=== PATIENT | female | born 1955 | race Caucasian/White ===

== ENCOUNTER → 2016-07-20 | Outpatient (CLI) | payer BC ==
--- NOTE | 2016-07-20 21:53 | PN ---
Patient is coming in for a compliancy check. She was diagnosed having symptomatic obstructive sleep apnea with an AHI of 27, worse in a supine body position. Currently she is on auto CPAP unit with a pressure minimum of 5 and pressure maximum of 20. Much improved. Much more alert and awake during the day. Much better stamina. No major hypersomnia or sleepiness. Compliance data was checked and over the past 30 days, the patient's average CPAP use is 5.7 hours per night. The P90 pressure is 11.6 and leak factor is only 5 L per minute and the patient's AHI while on treatment is down to 1.6. As such, this is a successful CPAP treatment and the patient's Rhame score is down to 4. BP is 153/100, pulse 94, respirations 16, weight is 281. GENERAL APPEARANCE: Calm, comfortable. HEENT: Short neck, crowding of posterior pharynx. LUNGS: Diminished; otherwise clear. Heart sounds are regular rate and rhythm. Normal S1 and S2. No S3. No S4. No murmurs. ABDOMEN: Soft, nontender. No organomegaly. EXTREMITIES: No edema. No cyanosis or clubbing. IMPRESSION: 1. Symptomatic obstructive sleep apnea, moderate in severity, worsened in a supine body position. apnea-hypopnea index is 27.5. The patient is undergoing successful continuous positive airway pressure therapy. 2. Obesity with interval weight gain. Body mass index is above 51. 3. Hypersomnia. Improved Rhame score is down to 4. PLAN: 1. Weight loss. 2. Sleep in a sidewise body position. 3. Continue auto CPAP therapy and if treatment is successful, next see me back in a year's time in followup; earlier if needed.
== END | disposition home or self-care (01) ==
LOC: SLEEP 13:03
PROVIDERS: ATTEND Internal Medicine Critical Care Medicine
DX: G47.33 Obstructive sleep apnea (adult) (pediatric) (principal); E66.9 Obesity, unspecified; Z68.43 Body mass index [BMI] 50.0-59.9, adult

== ENCOUNTER → 2017-11-29 | Outpatient (CLI) | payer BC ==
--- NOTE | 2017-11-29 13:43 | PN ---
PROGRESS NOTE Karen is a pleasant 62-year-old female patient coming in for a compliancy check. On today's evaluation, the patient is having some increased cough and congestion and change in her voice, quality and hoarseness. She also has developed some exertional dyspnea and wheeze. No history of any bronchial asthma. No history of COPD. She is an ex-smoker. She is afebrile. No pleurisy. No hemoptysis at this point. In terms of her sleep apnea, the patient is very compliant with CPAP machine. She continues to use her CPAP machine an average of 5.1 hour per night. She has an APAP with a minimum pressure of 5 and maximum pressure of 20 and her average pressure has been 8.7, which is lower compared to last year. This improvement in the average pressure is probably related to weight loss as the patient used to weight 281 pounds and currently she is down to 257. She is very compliant with CPAP machine. She has no other significant complaints. She wants her CPAP supplies to be renewed. Her current Rye Score is at 6. REVIEW OF SYSTEMS: 12-point review of system was done. Positive for weight loss. In addition to some increased cough, chest tightness and wheezing and change in voice quality probably related to underlying laryngitis. No chest pain. No pleurisy. No hemoptysis. No altered mentation. No episodes of falling asleep during day-to-day activities and she seems to be doing well at this point in time. No falls. No anxiety. No depression. No other complaints. PHYSICAL EXAMINATION: VITALS: Her current blood pressure 92/67, pulse is 99, respiration 16, temperature 97.7, saturation 95% on room air. Weight is 257. Height is 5 feet 1, BMI 48.5. GENERAL APPEARANCE: She is calm, comfortable, no acute distress. Head is atraumatic, normocephalic. Neck is supple, short. There is significant crowding of the posterior pharynx. There is no goiter or neck masses at this point. Heart is regular rate and rhythm. Normal S1, S2. No S3, S4. No murmurs. ABDOMEN: Soft, nontender. No organomegaly. EXTREMITIES: No edema. No cyanosis or clubbing. Neurologically: The patient is AO x3. There is no focal neurological deficits. PSYCHIATRIC: No anxiety or depression at this point. IMPRESSION: 1. Obstructive sleep apnea with an AHI of 27. The patient continues to be successfully treated with APAP, minimum pressure of 5, maximum pressure of 20 and there has been significant improvement in the average pressure over the past 1 year attributed to her weight loss. 2. Morbid obesity. Current BMI is 48.5, and the patient's weight is down to 257. 3. Acute laryngitis/bronchitis with secondary shortness of breath and loss in the voice and change in voice quality. 4. Hypersomnia recovered. PLAN: 1. Will give the patient a course of Z-Denis and Medrol Dosepak regarding her laryngitis/bronchitis. 2. Will continue CPAP therapy at same level of pressure with minimum pressure of 5, maximum pressure of 20 and the patient is on APAP treatment and her treatment is successful at this point. 3. Encourage further weight loss. 4. Renew her CPAP supplies and see me back in a year's time and follow up earlier if needed. MMEDELMIRA / JESUSN: [id number] /
== END | disposition home or self-care (01) ==
LOC: SLEEP 11:00
PROVIDERS: ATTEND Internal Medicine Critical Care Medicine
DX: G47.33 Obstructive sleep apnea (adult) (pediatric) (principal); E66.01 Morbid (severe) obesity due to excess calories; Z68.42 Body mass index [BMI] 45.0-49.9, adult; Z99.89 Dependence on other enabling machines and devices

== ENCOUNTER → 2018-07-11 | Outpatient (CLI) | payer MEDICARE, BC ==
--- NOTE | 2018-07-11 16:52 | PN ---
PROGRESS NOTE Karen is 63 with a known history of obstructive sleep apnea coming in for a followup. The patient was recently seen in the office approximately 8 months ago and she was doing extremely well. She obtained her Medicare and she was asked to come in for reevaluation. She is currently using a APAP machine. Minimum pressure of 5, maximum pressure of 20 and she continues to benefit from the machine. The patient was losing weight and she was down to 257 pounds and she has maintained her weight since last evaluation. Currently she is at 259 with a body mass index of 49.7. She remains extremely compliant and she is averaging around 5.9 hours of CPAP use per night with 4 L/minute leak factor and an AHI of 0.7 while on treatment. Her CPAP use for more than 4 hours is more than 70%. She wants all of the supplies to be renewed as the patient is using AirFit P10 nose pillow and she wants a heated tubing. She continues to benefit from treatment. Her Damon score is down to 6. BP 148/98, pulse 86, respirations 16, temperature 97.8. Saturation 99% on room air. Weight is 259. Height is 5 feet 0 inches, BMI 49.7, general appearance is calm and comfortable. Head is atraumatic, normocephalic. Neck is supple. There is no JVD. No goiter or neck masses. LUNGS: Clear to auscultation. Heart sounds are regular rate and rhythm. Normal S1, S2. No S3. No murmurs. Abdomen is soft, nontender. No organomegaly. EXTREMITIES: No edema. No cyanosis or clubbing. NEUROLOGIC: Alert and oriented x3. No focal neurological deficits. Psychiatric: Negative for anxiety or depression. IMPRESSION: 1. Severe symptomatic obstructive sleep apnea. The patient had an AHI of 27, currently on APAP and continues to be successfully treated. 2. Hypersomnia, recovered. 3. Morbid obesity. Weight is stable at 259 pounds. 4. Hypersomnia, recovered. PLAN: Renew the patient CPAP supplies including the mask, filters and tubing. The patient will be given AirFit P10 Medium-size nose pillows. The patient will be given the appropriate heated tubing. The patient will see me back in a couple of years in follow up, earlier if needed. MMODL / IJN: [id number] /
== END ==
LOC: SLEEP 15:02
PROVIDERS: ATTEND Internal Medicine Critical Care Medicine
DX: G47.33 Obstructive sleep apnea (adult) (pediatric) (principal); E66.01 Morbid (severe) obesity due to excess calories; Z99.89 Dependence on other enabling machines and devices; Z68.42 Body mass index [BMI] 45.0-49.9, adult

== ENCOUNTER 2020-04-19 09:19 | Inpatient (IN) | payer MEDICARE, BC ==
[2020-04-19] MEDS ORDERED: ACETAMINOPHEN TAB 500 MG TAB PO STA ×2 (10:06→13:15)
[2020-04-19] MEDS ORDERED: SODIUM CHLORIDE 0.9% 1,000 ML IV ONE (10:07)
--- NOTE | 2020-04-19 10:29 | ED ---
General Adult HPI - General Chief complaint: Upper Respiratory Infection Stated complaint: Weak Time Seen by Provider: 04/19/20 09:46 Source: patient, RN notes reviewed, old records reviewed Mode of arrival: ambulatory Limitations: no limitations - History of Present Illness Initial comments: 65-year-old female presents emergency department today for evaluation with complaints of fever and general body aches and fatigue. Patient reportedly started to have symptoms of fatigue headache and bodyaches starting on Tuesday. She reports that she has been in bed sleeping most of the time. Patient reports that she's had no known history of sick contacts, family works in healthcare. She is retired. Patient reports that she has been somewhat winded more short of breath. - Related Data Home Medications Medication Instructions Recorded Confirmed Aspirin 81 mg PO DAILY 08/28/14 04/19/20 Levothyroxine Sodium [Synthroid] 112 mcg PO DAILY 08/28/14 04/19/20 Metoprolol Tartrate 50 mg PO QAM 08/28/14 04/19/20 Moexipril HCl 7.5 mg PO QAM 08/28/14 04/19/20 Simvastatin 20 mg PO HS 08/28/14 04/19/20 Allergies Allergy/AdvReac Type Severity Reaction Status Date / Time Penicillins Allergy Rash/Hives Verified 04/19/20 12:39 Review of Systems ROS Statement: Those systems with pertinent positive or pertinent negative responses have been documented in the HPI. ROS Other: All systems not noted in ROS Statement are negative. Past Medical History Past Medical History: Hypertension History of Any Multi-Drug Resistant Organisms: None Reported Past Surgical History: No Surgical Hx Reported Past Psychological History: No Psychological Hx Reported Smoking Status: Never smoker Past Alcohol Use History: None Reported Past Drug Use History: None Reported General Exam - General Exam Comments Initial Comments: 65-year-old female. Alert and oriented 3. Limitations: no limitations General appearance: alert, in no apparent distress Head exam: Present: atraumatic, normocephalic, normal inspection Eye exam: Present: normal appearance, PERRL, EOMI. Absent: scleral icterus, conjunctival injection, periorbital swelling ENT exam: Present: normal exam, mucous membranes moist Neck exam: Present: normal inspection. Absent: tenderness, meningismus, lymphadenopathy Respiratory exam: Present: wheezes. Absent: normal lung sounds bilaterally, respiratory distress, rales, rhonchi, stridor Cardiovascular Exam: Present: regular rate, normal rhythm, normal heart sounds. Absent: systolic murmur, diastolic murmur, rubs, gallop, clicks GI/Abdominal exam: Present: soft Extremities exam: Present: normal inspection, full ROM, normal capillary refill. Absent: tenderness, pedal edema, joint swelling, calf tenderness Back exam: Present: normal inspection Neurological exam: Present: alert, oriented X3, CN II-XII intact Psychiatric exam: Present: normal affect, normal mood Skin exam: Present: warm, dry, intact, normal color. Absent: rash Course Vital Signs 04/19/20 04/19/20 09:34 12:14 Temperature 101.4 F H Pulse Rate 77 77 Respiratory 18 18 Rate Blood Pressure 110/71 98/51 O2 Sat by Pulse 96 96 Oximetry Medical Decision Making - Medical Decision Making 65-year-old female presents emergency department today for concerns for weakness cough and respiratory congestion. Symptoms are the past 4 days. She rates a fever of 101. Patient symptoms seem likely to be coping 19 infection. Patient had laboratory obtained showing elevated CRP and let LDH. Patient's chest x-ray shows evidence of pneumonia. Patient's oxygen was 92% on room air with ambulation. Patient case discussed with at this time. Dr. Aguirre discussed with . also he agrees for admission. - Lab Data Result diagrams: 04/19/20 10:50 04/19/20 10:50 Lab Results 04/19/20 04/19/20 04/19/20 Range/Units 10:50 10:50 10:50 WBC 6.2 (3.8-10.6) k/uL RBC 4.98 (3.80-5.40) m/uL Hgb 14.3 (11.4-16.0) gm/dL Hct 42.9 (34.0-46.0) % MCV 86.2 (80.0-100.0) fL MCH 28.7 (25.0-35.0) pg MCHC 33.3 (31.0-37.0) g/dL RDW 13.6 (11.5-15.5) % Plt Count 143 L (150-450) k/uL MPV 9.3 Neutrophils % 78 % Lymphocytes % 17 % Monocytes % 4 % Eosinophils % 0 % Basophils % 0 % Neutrophils # 4.8 (1.3-7.7) k/uL Lymphocytes # 1.1 (1.0-4.8) k/uL Monocytes # 0.2 (0-1.0) k/uL Eosinophils # 0.0 (0-0.7) k/uL Basophils # 0.0 (0-0.2) k/uL PT 9.9 (9.0-12.0) sec INR 0.9 (<1.2) APTT 25.1 (22.0-30.0) sec D-Dimer 0.71 H (<0.60) mg/L FEU Sodium 134 L (137-145) mmol/L Potassium 4.1 (3.5-5.1) mmol/L Chloride 99 (98-107) mmol/L Carbon Dioxide 27 (22-30) mmol/L Anion Gap 8 mmol/L BUN 16 (7-17) mg/dL Creatinine 0.86 (0.52-1.04) mg/dL Est GFR (CKD-EPI)AfAm 82 (>60 ml/min/1.73 sqM) Est GFR (CKD-EPI)NonAf 71 (>60 ml/min/1.73 sqM) Glucose 103 H (74-99) mg/dL Plasma Lactic Acid Owen (0.7-2.0) mmol/L Calcium 8.5 (8.4-10.2) mg/dL Magnesium 2.2 (1.6-2.3) mg/dL Total Bilirubin 1.1 (0.2-1.3) mg/dL AST 39 H (14-36) U/L ALT 20 (4-34) U/L Alkaline Phosphatase 75 (38-126) U/L Lactate Dehydrogenase 924 H (313-618) U/L C-Reactive Protein 140.4 H (<10.0) mg/L Total Protein 6.8 (6.3-8.2) g/dL Albumin 3.7 (3.5-5.0) g/dL Urine Color Urine Appearance (Clear) Urine pH (5.0-8.0) Ur Specific [place] (1.001-1.035) Urine Protein (Negative) Urine Glucose (UA) (Negative) Urine Ketones (Negative) Urine Blood (Negative) Urine Nitrite (Negative) Urine Bilirubin (Negative) Urine Urobilinogen (<2.0) mg/dL Ur Leukocyte Esterase (Negative) Urine RBC (0-5) /hpf Urine WBC (0-5) /hpf Ur Squamous Epith Cells (0-4) /hpf Urine Bacteria (None) /hpf Hyaline Casts (0-2) /lpf Urine Mucus (None) /hpf 04/19/20 04/19/20 Range/Units 10:50 12:15 WBC (3.8-10.6) k/uL RBC (3.80-5.40) m/uL Hgb (11.4-16.0) gm/dL Hct (34.0-46.0) % MCV (80.0-100.0) fL MCH (25.0-35.0) pg MCHC (31.0-37.0) g/dL RDW (11.5-15.5) % Plt Count (150-450) k/uL MPV Neutrophils % % Lymphocytes % % Monocytes % % Eosinophils % % Basophils % % Neutrophils # (1.3-7.7) k/uL Lymphocytes # (1.0-4.8) k/uL Monocytes # (0-1.0) k/uL Eosinophils # (0-0.7) k/uL Basophils # (0-0.2) k/uL PT (9.0-12.0) sec INR (<1.2) APTT (22.0-30.0) sec D-Dimer (<0.60) mg/L FEU Sodium (137-145) mmol/L Potassium (3.5-5.1) mmol/L Chloride (98-107) mmol/L Carbon Dioxide (22-30) mmol/L Anion Gap mmol/L BUN (7-17) mg/dL Creatinine (0.52-1.04) mg/dL Est GFR (CKD-EPI)AfAm (>60 ml/min/1.73 sqM) Est GFR (CKD-EPI)NonAf (>60 ml/min/1.73 sqM) Glucose (74-99) mg/dL Plasma Lactic Acid Owen 1.4 (0.7-2.0) mmol/L Calcium (8.4-10.2) mg/dL Magnesium (1.6-2.3) mg/dL Total Bilirubin (0.2-1.3) mg/dL AST (14-36) U/L ALT (4-34) U/L Alkaline Phosphatase (38-126) U/L Lactate Dehydrogenase (313-618) U/L C-Reactive Protein (<10.0) mg/L Total Protein (6.3-8.2) g/dL Albumin (3.5-5.0) g/dL Urine Color Yellow Urine Appearance Cloudy H (Clear) Urine pH 6.0 (5.0-8.0) Ur Specific [place] 1.028 (1.001-1.035) Urine Protein 1+ H (Negative) Urine Glucose (UA) Negative (Negative) Urine Ketones 2+ H (Negative) Urine Blood Negative (Negative) Urine Nitrite Negative (Negative) Urine Bilirubin 1+ H (Negative) Urine Urobilinogen 4.0 (<2.0) mg/dL Ur Leukocyte Esterase Trace H (Negative) Urine RBC 3 (0-5) /hpf Urine WBC 4 (0-5) /hpf Ur Squamous Epith Cells 1 (0-4) /hpf Urine Bacteria Rare H (None) /hpf Hyaline Casts 10 H (0-2) /lpf Urine Mucus Many H (None) /hpf 04/19/20 11:22 EKG shows normal sinus rhythm normal EKG. Ventricular rate of 89 bpm. IA interval is 1:30 milliseconds. QS duration 74 ms. QT QTc is 356/433 ms. - Radiology Data Radiology results: report reviewed Chest x-ray shows evidence of pneumonia Disposition Clinical Impression: Suspected COVID-19 virus infection, Pneumonia Disposition: ADMITTED IP TO THIS HOSP Condition: Stable Is patient prescribed a controlled substance at d/c from ED?: No Referrals: Anali Dubois MD [Primary Care Provider] - 1-2 days Time of Disposition: 13:13
--- NOTE | 2020-04-19 11:29 | XR ---
EXAMINATION TYPE: XR chest 1V portable DATE OF EXAM: 04/19/2020 COMPARISON: Prior chest x-ray 08/03/2011 HISTORY: Cough and congestion, suspected pneumonia TECHNIQUE: Single frontal view of the chest is obtained. FINDINGS: Patchy bilateral airspace disease is noted. No evident pneumothorax or pleural effusion. H eart size is stable. IMPRESSION: Correlate for pneumonia, follow-up suggested as indicated.
[2020-04-19 11:32] LABS: Basophils % (A) 0 %; Eosinophils % (A) 0 %; HCT 42.9 % (34.0-46.0); HGB 14.3 gm/dL (11.4-16.0); Lymphocytes # (A) 1.1 k/uL (1.0-4.8); Lymphocytes % (A) 17 %; MCH 28.7 pg (25.0-35.0); MCHC 33.3 g/dL (31.0-37.0); MCV 86.2 fL (80.0-100.0); Mean Platelet Volume 9.3; Monocytes # (A) 0.2 k/uL (0-1.0); Monocytes % (A) 4 %; Neutrophils # (A) 4.8 k/uL (1.3-7.7); Neutrophils % (A) 78 %; Platelet Count 143 k/uL (150-450); RBC 4.98 m/uL (3.80-5.40); RDW 13.6 % (11.5-15.5); WBC 6.2 k/uL (3.8-10.6)
[2020-04-19] MEDS ORDERED: DEXAMETHASONE SOD PHOSPHATE 10 MG/ML 1 ML VIAL IV STA (11:40)
[2020-04-19 11:50] LABS: Albumin 3.7 g/dL (3.5-5.0); Calcium 8.5 mg/dL (8.4-10.2); INR 0.9 (<1.2); Magnesium 2.2 mg/dL (1.6-2.3); Partial Thromboplastin Time 25.1 sec (22.0-30.0); Potassium 4.1 mmol/L (3.5-5.1); Prothrombin Time 9.9 sec (9.0-12.0); Total Bilirubin 1.1 mg/dL (0.2-1.3); Total Protein 6.8 g/dL (6.3-8.2)
[2020-04-19 12:04] LABS: D-Dimer 0.71 mg/L FEU (<0.60)
[2020-04-19 12:05] LABS: C Reactive Protein 140.4 mg/L (<10.0)
[2020-04-19 12:44] LABS: Appearance,Urine Cloudy (Clear); Bacteria,Urine Rare /hpf; Bilirubin,Urine 1+ (Negative); Blood,Urine Negative (Negative); Color,Urine Yellow; Glucose,Urine (UA) Negative (Negative); Hyaline Casts,Urine 10 /lpf (0-2); Ketones,Urine 2+ (Negative); Leukocyte Esterase,Urine Trace (Negative); Mucus,Urine Many /hpf; Nitrite,Urine Negative (Negative); Protein,Urine 1+ (Negative); RBC,Urine 3 /hpf (0-5); Specific Gravity,Urine 1.028 (1.001-1.035); Squamous Epithelial Cell,Urine 1 /hpf (0-4); WBC,Urine 4 /hpf (0-5)
[2020-04-19] MEDS ORDERED: INSULIN REGULAR 100 UNIT/ML VIAL SQ ONE (13:14)
[2020-04-19] MEDS: SODIUM CHLORIDE 0.9% 1,000 ML IV SCH ×2 (13:41→23:07)
--- NOTE | 2020-04-19 16:50 | P.HPIM ---
History of Present Illness H&P Date: 04/19/20 Chief Complaint: muscle aches Patient is 65-year-old female with a history of hypertension and obesity who presented to the emergency Department complaints of shortness of breath. In the ER she underwent an extensive evaluation. On arrival she was febrile temp of 101.4. Urinalysis showed a sodium of 134, glucose 103, AST 39, LDH 924, CRP 140, urinalysis unremarkable, and rapid Covid test was positive. CXR showed bilateral airspace disease. She was started on dexamethasone and admitted for further monitoring. Patient is a 65-year-old female with a past medical history of hypertension, obesity, and heart disease who presented to the hospital with complaints of generalized fatigue and body aches. In the emergency department she underwent extensive evaluation. She was febrile to greater than 101 on arrival. Laboratory analysis demonstrated who goes 103, AST 39, LDH 924, CRP 140. Urinalysis was unremarkable. Chest x-ray showed pneumonia. Rapid over testing was positive. She was started on dexamethasone arrangements were made for admission. Of note the patient had thought she was having a urinary tract infection and had been to Dr. Dubois's office for a urinalysis, then dropped her urinalysis off. The hospital yesterday. She then came to the ER when she felt she just could not handle it anymore. Patient seen and examined at bedside. She reports that she started having symptoms on Tuesday, approximately 5 days ago. She suddenly became severely fatigued. She was unable to stay awake or get off the couch. She was having generalized body aches and pains. She reports almost no appetite with decreased fluid intake. She stated that everything was tasting off, but she did not lose her taste or smell. She has some shortness of breath that is intermittent at baseline and she feels there was no significant change. She has had a little coughing which has been nonproductive. She reports a runny nose. She states that she initially sought care at Dr. Dubois's office and throught she had a UTI. She went there to drop off a urine specimen on 04/18. She reports that the mother started having symptoms yesterday and went for testing at [facility]. Pertinent positives and negatives as discussed in HPI, a complete review of syst ems was performed and all other systems are negative. General: ill appearing, no distress, appears at stated age Derm: warm, dry Head: atraumatic, normocephalic, symmetric Eyes: EOMI, no lid lag, anicteric sclera Mouth: no lip lesion, mucus membranes moist Cardiovascular: S1S2 reg, no murmur, positive posterior tibial pulse bilateral, Lungs: ronchi bilateral bases , no accessory muscle use Abdominal: soft, nontender to palpation, no guarding, no appreciable organomegaly Ext: no gross muscle atrophy, no edema, no contractures Neuro: CN II-XI grossly intact, no focal neuro deficits Psych: Alert, oriented, appropriate affect Covid19 pneumonia -Zinc, vitamin C, vitamin D, melatonin, Pepcid, dexamethasone -Follow Covid inflammatory markers -Wean oxygen as able Dehydration -IV fluids - repeat labs in AM Hypertension controlled -Metoprolol, CAMPOS inhibitor -Follow blood pressures Hypothyroidism -Synthroid Dyslipidemia -Statin Morbid obesity with BMI 50.8 -Outpatient structured weight loss Urinary tract infection, ruled out The patient is admitted with an anticipated greater than 2 midnight stay for evaluation of COVID PNA. Surrogate decision-maker: Son CODE STATUS: Full DVT prophylaxis: Lovenox Discussed with: Patient Anticipated discharge date: in AM Anticipated discharge place: home A total of 65 minutes was spent on the care of this complex patient more than 50% of the time was spent in counseling and care coordination. Past Medical History Past Medical History: Hypertension History of Any Multi-Drug Resistant Organisms: None Reported Past Surgical History: No Surgical Hx Reported Past Psychological History: No Psychological Hx Reported Smoking Status: Never smoker Past Alcohol Use History: None Reported Past Drug Use History: None Reported Medications and Allergies Home Medications Medication Instructions Recorded Confirmed Type Aspirin 81 mg PO DAILY 08/28/14 04/19/20 History Levothyroxine Sodium [Synthroid] 112 mcg PO DAILY 08/28/14 04/19/20 History Metoprolol Tartrate 50 mg PO QAM 08/28/14 04/19/20 History Moexipril HCl 7.5 mg PO QAM 08/28/14 04/19/20 History Simvastatin 20 mg PO HS 08/28/14 04/19/20 History Allergies Allergy/AdvReac Type Severity Reaction Status Date / Time Penicillins Allergy Rash/Hives Verified 04/19/20 12:39 Physical Exam Osteopathic Statement: *. No significant issues noted on an osteopathic structural exam other than those noted in the History and Physical/Consult. Vitals: Vital Signs Temp Pulse Resp BP Pulse Ox 04/19/20 13:45 98.0 F 82 18 95/58 96 04/19/20 13:11 88 20 97/63 96 04/19/20 12:14 77 18 98/51 96 04/19/20 09:34 101.4 F H 77 18 110/71 96 Intake and Output 04/19/20 04/19/20 04/19/20 06:59 14:59 22:59 Other: Weight 117.934 kg Results CBC & Chem 7: 04/19/20 10:50 04/19/20 10:50 Labs: Abnormal Lab Results - Last 24 Hours (Table) 04/19/20 04/19/20 04/19/20 Range/Units 10:50 10:50 10:50 Plt Count 143 L (150-450) k/uL D-Dimer 0.71 H (<0.60) mg/L FEU Sodium 134 L (137-145) mmol/L Glucose 103 H (74-99) mg/dL AST 39 H (14-36) U/L Lactate Dehydrogenase 924 H (313-618) U/L C-Reactive Protein 140.4 H (<10.0) mg/L Urine Appearance (Clear) Urine Protein (Negative) Urine Ketones (Negative) Urine Bilirubin (Negative) Ur Leukocyte Esterase (Negative) Urine Bacteria (None) /hpf Hyaline Casts (0-2) /lpf Urine Mucus (None) /hpf Coronavirus (PCR) (Not Detectd) 04/19/20 04/19/20 Range/Units 12:15 13:09 Plt Count (150-450) k/uL D-Dimer (<0.60) mg/L FEU Sodium (137-145) mmol/L Glucose (74-99) mg/dL AST (14-36) U/L Lactate Dehydrogenase (313-618) U/L C-Reactive Protein (<10.0) mg/L Urine Appearance Cloudy H (Clear) Urine Protein 1+ H (Negative) Urine Ketones 2+ H (Negative) Urine Bilirubin 1+ H (Negative) Ur Leukocyte Esterase Trace H (Negative) Urine Bacteria Rare H (None) /hpf Hyaline Casts 10 H (0-2) /lpf Urine Mucus Many H (None) /hpf Coronavirus (PCR) Detected A (Not Detectd)
[2020-04-19] MEDS ORDERED: ACETAMINOPHEN TAB 325 MG TAB PO PRN (16:52)
[2020-04-19] MEDS ORDERED: ALBUTEROL HFA INHALER INHALATION PRN (16:52)
[2020-04-19 18:32] LABS: Ferritin 451.8 ng/mL (10.0-291.0)
[2020-04-19] MEDS ORDERED: ATORVASTATIN 10 MG TAB PO SCH (21:00)
[2020-04-19] MEDS: ALBUTEROL HFA INHALER INHALATION SCH (22:20)
[2020-04-20] MEDS ORDERED: LEVOTHYROXINE 112 MCG TAB PO SCH (06:30)
[2020-04-20] MEDS: SODIUM CHLORIDE 0.9% 1,000 ML IV SCH (07:27)
[2020-04-20 07:29] LABS: Basophils % (A) 0 %; Eosinophils % (A) 0 %; HCT 42.1 % (34.0-46.0); Lymphocytes # (A) 0.8 k/uL (1.0-4.8); Lymphocytes % (A) 13 %; MCH 29.5 pg (25.0-35.0); MCHC 33.3 g/dL (31.0-37.0); MCV 88.7 fL (80.0-100.0); Mean Platelet Volume 8.6; Monocytes # (A) 0.2 k/uL (0-1.0); Monocytes % (A) 3 %; Neutrophils # (A) 5.6 k/uL (1.3-7.7); Neutrophils % (A) 83 %; Platelet Count 150 k/uL (150-450); RBC 4.74 m/uL (3.80-5.40); RDW 13.2 % (11.5-15.5); WBC 6.7 k/uL (3.8-10.6)
[2020-04-20 07:42] VITALS: RESP 20; TEMP 97.9
[2020-04-20 08:39] VITALS: BP 151/76
[2020-04-20] MEDS ORDERED: ENOXAPARIN 40 MG/0.4 ML SYRINGE SQ SCH (09:00)
[2020-04-20] MEDS ORDERED: DEXAMETHASONE SOD PHOSPHATE 10 MG/ML 1 ML VIAL IV SCH (09:00)
[2020-04-20] MEDS ORDERED: lisinopriL 10 MG TAB PO SCH (09:00)
[2020-04-20] MEDS ORDERED: METOPROLOL TARTRATE 50 MG TAB PO SCH (09:00)
[2020-04-20] MEDS: ALBUTEROL HFA INHALER INHALATION SCH ×2 (09:00)
[2020-04-20] MEDS ORDERED: ASPIRIN 81 MG PO SCH (09:00)
[2020-04-20 09:40] VITALS: PULSE 100
[2020-04-20 10:17] LABS: African American GFR (CKD) 109.3 (60.0-200.0); Albumin 3.9 g/dL (3.80-4.90); Albumin/Globulin Ratio 1.95 (1.60-3.17); Anion Gap 10.5 mmol/L (4.00-12.00); C Reactive Protein 12.4 mg/dL (0.0-0.8); Calcium 8.3 mg/dL (8.7-10.3); Carbon Dioxide 25.5 mmol/L (21.6-31.8); Magnesium 2.3 mg/dL (1.5-2.4); Non-African American GFR(CKD) 94.3 (60.0-200.0); Potassium 4.4 mmol/L (3.5-5.5); Total Bilirubin 0.4 mg/dL (0.3-1.2); Total Protein 5.9 g/dL (6.2-8.2)
[2020-04-20 10:30] LABS: Ferritin 430.7 ng/mL (10.0-291.0)
--- NOTE | 2020-04-20 11:23 | P.DS ---
Providers Date of admission: 04/19/20 13:13 Expected date of discharge: 04/20/20 Attending physician: Juan Salgado Primary care physician: Anali Dubois [facility] Course: Discharge Diagnosis: Code 19 infection Viral pneumonitis Dehydration Hypertension Hypothyroidism Dyslipidemia Morbid obesity Urinary tract infection ruled out Hospital Course: Patient is 65-year-old female with a history of hypertension and obesity who presented to the emergency Department complaints of shortness of breath. In the ER she underwent an extensive evaluation. On arrival she was febrile temp of 101.4. Urinalysis showed a sodium of 134, glucose 103, AST 39, LDH 924, CRP 140, urinalysis unremarkable, and rapid Covid test was positive. CXR showed bilateral airspace disease. She was started on dexamethasone and admitted for further monitoring. She continues to do well. She did not require any oxygen. 24 hours of dexamethasone therapy her CRP dropped from 140-12.4. She was de termined stable for discharge home. She is given explicit instructions to return to the emergency department should she develop worsening shortness breath, confusion, lethargy, or coughing. She is also given instructions on isolation and quarenten for family members. Patient seen and examined at bedside. She is feeling much less tired and her energy has returned. Most of her muscle cramping has resolved. She still feels as though this is difficult to take a deep breath but she does not feel overtly short of breath. Patient improved faster than anticipated subsequently discharged home with a less than 2 midnight stay. Vital signs reviewed and stable. General: non toxic, no distress, appears at stated age Derm: warm, dry Head: atraumatic, normocephalic, symmetric Eyes: EOMI, no lid lag, anicteric sclera Mouth: no lip lesion, mucus membranes moist Cardiovascular: S1S2 reg, no murmur, positive posterior tibial pulse bilateral, Lungs: Decreased breath sounds bilateral bases, no conversational dyspnea, no rhonchi, no rales , no accessory muscle use Abdominal: soft, nontender to palpation, no guarding, no appreciable organomegaly Ext: no gross muscle atrophy, no edema, no contractures Neuro: CN II-XI grossly intact, no focal neuro deficits Psych: Alert, oriented, appropriate affect A total of 35 minutes of time were spent preparing this complex discharge summary . Patient Condition at Discharge: Stable Plan - Discharge Summary Discharge Rx Participant: No New Discharge Prescriptions: New Dexamethasone 6 mg PO DAILY #9 tablet Ascorbic Acid [Vitamin C] 1,000 mg PO DAILY #15 tablet Cholecalciferol [Vitamin D3 (25 Mcg = 1000 Iu)] 2,000 unit PO DAILY #15 tablet Zinc Sulfate 220 mg PO DAILY #15 capsule Continue Simvastatin 20 mg PO HS Moexipril HCl 7.5 mg PO QAM Metoprolol Tartrate 50 mg PO QAM Levothyroxine Sodium [Synthroid] 112 mcg PO DAILY Aspirin 81 mg PO DAILY Discharge Medication List Aspirin 81 mg PO DAILY 08/28/14 [History] Levothyroxine Sodium [Synthroid] 112 mcg PO DAILY 08/28/14 [History] Metoprolol Tartrate 50 mg PO QAM 08/28/14 [History] Moexipril HCl 7.5 mg PO QAM 08/28/14 [History] Simvastatin 20 mg PO HS 08/28/14 [History] Ascorbic Acid [Vitamin C] 1,000 mg PO DAILY #15 tablet 04/20/20 [Rx] Cholecalciferol [Vitamin D3 (25 Mcg = 1000 Iu)] 2,000 unit PO DAILY #15 tablet 04/20/20 [Rx] Dexamethasone 6 mg PO DAILY #9 tablet 04/20/20 [Rx] Zinc Sulfate 220 mg PO DAILY #15 capsule 04/20/20 [Rx] Follow up Appointment(s)/Referral(s): Anali Dubois MD [Primary Care Provider] - 10 Days Activity/Diet/Wound Care/Special Instructions: Activity: as tolerated Diet: regular Discharge Disposition: HOME SELF-CARE
== END 2020-04-20 12:53 | disposition home or self-care (01) | DRG 177 ==
LOC: EC 09:19 → 4SSUR 13:13
PROVIDERS: ADMIT Internal Medicine; ATTEND Internal Medicine
DX: U07.1 COVID-19 (principal); J12.89 Other viral pneumonia; Z68.43 Body mass index [BMI] 50.0-59.9, adult; E66.01 Morbid (severe) obesity due to excess calories; E86.0 Dehydration; I10 Essential (primary) hypertension; E03.9 Hypothyroidism, unspecified; E78.5 Hyperlipidemia, unspecified; Z79.82 Long term (current) use of aspirin; Z79.890 Hormone replacement therapy; Z79.899 Other long term (current) drug therapy
CPT/HCPCS: 36415; 71045; 80053; 81001; 82728; 83605; 83615; 83735; 83880; 84145; 85025; 85379; 85610; 85730; 86140; 87040; 87086; 87635; 93005; 94640; 96361; 96374; 96375; 99285

== ENCOUNTER → 2020-11-11 | Outpatient (CLI) | payer MEDICARE, BC ==
--- NOTE | 2020-11-11 17:50 | SFUN ---
SLEEP CENTER FOLLOW UP NOTE This patient is known to have obstructive sleep apnea. She is 65 years of age and the patient is known to have moderate to severe TANIA with an AHI of 27. She has been maintained on APAP at a pressure of 4 minimum, maximum of 20. She has been extremely compliant to her treatment and she has been using every year. Last evaluation was done in July of 2018 and I have not seen the patient since. She needs refills on her supplies. I checked the compliance data and the patient has been averaging around 5.1 hour of CPAP use per night and CPAP use for more than 4 hours . This is based on 30-day compliancy. Average CPAP delivered by the machine is around 11.5 cm of water with a leak of 8 L/minutes and her mask is currently AirFit P10 medium-size nasal pillow. No hypersomnia or sleepiness during the day. She is awake and alert and quite refreshed. Her Tyrone score is only at 5. No other significant events. She has gained around 7 pounds since her last evaluation. REVIEW OF SYSTEMS: Fourteen-point review of system was done and positive findings are mentioned in history of present illness. PHYSICAL EXAMINATION: VITAL SIGNS: BP is 127/90, pulse 94, respirations 16, temperature 97.3, saturation is 99% on room air. Weight is 266, BMI is 50. Tyrone score is a 5. GENERAL APPEARANCE: Calm and comfortable. HEENT: Head atraumatic, normocephalic. NECK: Supple. No JVD. No goiter or neck masses. Mallampati class 4. LUNGS: Clear to auscultation. HEART: Heart sounds are regular rate and rhythm normal S1, S2. No S3, S4. No murmurs. ABDOMEN: Soft and nontender, no organomegaly. EXTREMITIES: No edema. No cyanosis or clubbing. NEUROLOGIC: Awake, alert. There are no focal neurological deficits. PSYCHIATRIC: Negative for anxiety or depression. IMPRESSION: 1. Obstructive sleep apnea, moderate to severe AHI of 27, currently on an APAP with successful treatment. 2. Hypersomnia, recovered. 3. Obesity with interval 7 pounds weight gain. Current BMI is 50. 4. Hypersomnia, recovered. Tyrone score is down to 5. PLAN: 1. Refill on supplies including AirFit P10 nasal pillow, medium size. 2. Keep same pressure setting. 3. Refill the heated tubing and filters and humidification chamber. Encourage weight loss and see me back in a year's time in followup, earlier if needed. MMODL / IJN: [id number] /
== END | disposition home or self-care (01) ==
LOC: SLEEP 15:24
PROVIDERS: ATTEND Internal Medicine Critical Care Medicine
DX: G47.33 Obstructive sleep apnea (adult) (pediatric) (principal); E66.9 Obesity, unspecified; Z68.43 Body mass index [BMI] 50.0-59.9, adult

== ENCOUNTER → 2021-03-11 | Outpatient (CLI) | payer MEDICARE, BC ==
--- NOTE | 2021-03-11 11:30 | XR ---
EXAMINATION TYPE: XR lumbosacral spine min 4V, XR thoracic spine complete DATE OF EXAM: 03/11/2021 CLINICAL HISTORY: Mid and low back pain. TECHNIQUE: Frontal, lateral, and swimmer's view thoracic spine. Frontal, lateral, and oblique images of the lumbar spine are obtained. COMPARISON: None FINDINGS: Thoracic spine shows demineralization without acute fracture. Mild multilevel disc space n arrowing and anterior spurring. Vertebral body heights are maintained. Visualized ribs are intact beck aterally. There are 5 lumbar type vertebral bodies identified. The lumbar spine shows dextroconvex scoliotic c urvature positioning centered lumbosacral junction. Vertebral body heights are maintained. There is m ild multilevel disc space narrowing with relative sparing of L4-L5 level. There is moderate multileve l anterior and lateral spurring. The oblique images appear within normal limits. The overlying soft tissue appears unremarkable. IMPRESSION: As above.
== END | disposition home or self-care (01) ==
LOC: RADXRMAIN 10:36
PROVIDERS: ATTEND Family Medicine
DX: M54.5 Low back pain (principal); M54.6 Pain in thoracic spine
CPT/HCPCS: 72072; 72110

== ENCOUNTER → 2021-04-24 | Outpatient (CLI) | payer MEDICARE, BC ==
--- NOTE | 2021-04-27 11:20 | MM ---
Reason for exam: screening (asymptomatic). Last mammogram was performed 6 years and 9 months ago. History: Patient is postmenopausal. Took estrogen for 2 years 8 months. Took progesterone for 2 years 8 months. Taking other hormone for 15 years. Physical Findings: A clinical breast exam by your physician is recommended on an annual basis and results should be correlated with mammographic findings. MG 3D Screening Mammo W/Cad Bilateral CC and MLO view(s) were taken. CV view(s) were taken of the left breast. Prior study comparison: July 15, 2014, bilateral MG screening mammo w CAD. The breast tissue is almost entirely fat. Multiple bilateral mole markers. No significant changes when compared with prior studies. ASSESSMENT: Negative, BI-RAD 1 RECOMMENDATION: Routine screening mammogram of both breasts in 1 year.
== END | disposition home or self-care (01) ==
LOC: RADMAMWWP 08:42
PROVIDERS: ATTEND Family Medicine
DX: Z12.31 Encounter for screening mammogram for malignant neoplasm of breast (principal)
CPT/HCPCS: 77063; 77067

== ENCOUNTER → 2021-10-12 | Outpatient (CLI) | payer MEDICARE, BC ==
[2021-10-12 18:26] LABS: HCT 45.8 % (37.2-46.3); HGB 14.3 g/dL (12.0-15.0); MCH 29.3 pg (27.0-32.0); MCHC 31.2 g/dL (32.0-37.0); MCV 93.9 fL (80.0-97.0); Mean Platelet Volume 12.2 fL (9.5-12.2); NRBC Per 100 WBC 0 /100 WBCS (0.0-0.0); Platelet Count 162 X 10*3/uL (140-440); RBC 4.88 X 10*6/uL (4.10-5.20)
[2021-10-12 22:16] LABS: ALT 11 U/L (8-44); AST 16 U/L (13-35); African American GFR (CKD) 88.3 (60.0-200.0); Albumin 4.1 g/dL (3.8-4.9); Albumin/Globulin Ratio 1.61 (1.60-3.17); Alkaline Phosphatase 67 U/L (41-126); BUN/Creat Ratio 23.49 Ratio (12.00-20.00); Blood Urea Nitrogen 18.7 mg/dL (9.0-27.0); Calcium 9.2 mg/dL (8.7-10.3); Carbon Dioxide 26.1 mmol/L (20.0-27.5); Chloride 107 mmol/L (96-109); Chol/HDL Ratio 3.15 Ratio; Globulin 2.5 g/dL (1.6-3.3); Glucose 92 mg/dL (70-110); LDL Cholesterol,Calculated 103.5 mg/dL (0.0-131.0); Non-African American GFR(CKD) 76.2 (60.0-200.0); Potassium 4.8 mmol/L (3.5-5.5); Sodium 142 mmol/L (135-145); Total Protein 6.6 g/dL (6.2-8.2); VLDL Calculation 12.64 mg/dL (5.00-40.00)
== END | disposition home or self-care (01) ==
LOC: LABWHC1 10:23
PROVIDERS: ATTEND Nurse Practitioner Adult Health
DX: I10 Essential (primary) hypertension (principal); E78.2 Mixed hyperlipidemia; E03.9 Hypothyroidism, unspecified
CPT/HCPCS: 36415; 80053; 80061; 84439; 84443; 85027

== ENCOUNTER → 2021-12-29 | Outpatient (CLI) | payer MEDICARE ==
--- NOTE | 2021-12-29 15:06 | P.PN ---
Subjective Progress Note Date: 12/29/21 66-year-old female patient coming in for annual checkup regarding her obstructive sleep apnea. The patient has moderate to severe disease and the patient has an AHI of 27 based on a previous sleep study and the patient has been treated with an APAP machine pressure minimal for a maximum of 20. The patient has been successful treated over the past few years and her last evaluation was in November 2020. Since last year, the patient has done major lifestyle modification and the patient has lost approximately 50 pounds. She is to weigh around 266 pounds and currently she is down to 214 pounds. Since then, the patient has remained compliant to her CPAP therapy. I checked her machine. Over the past 30 days, the patient has received her machine on average of 4.2 hours per night and average pressure the liver and vitamin she is on 7.4 cm of water. She is using the nasal pillows Airfit P10 in. Her leak is noted of 14 L per minute. Her AHI is down to 0.2. She is wondering whether there is ongoing need for CPAP therapy special with ongoing weight loss. She is doing well. No major Hospitals during the Day. No Other New Complaints. No Headaches. No Shortness of Breath. No Choking or Gasping or Snoring While on CPAP Therapy. Objective - Exam BP Is 128/85 with a Pulse of 71 and Respirations 16 and the Temperature Is 97.0 The weight is at 214 pounds with a body mass index of 40.4 and an Vista score of 4 The patient appeared well nourished and normally developed. Vital signs as documented. Head exam is unremarkable. No scleral icterus or corneal arcus noted. Neck is without jugular venous distension, thyromegaly, or carotid bruits. Carotid upstrokes are brisk bilaterally. Lungs are clear to auscultation and percussion. Cardiac exam reveals the PMI to be normally sized and situated. Rhythm is regular. First and second heart sounds normal. No murmurs, rubs or gallops. Abdominal exam reveals normal bowel sounds, no masses, no organomegaly and no aortic enlargement. Extremities are nonedematous and both femoral and ped al pulses are normal.Examination of the skin revealed no evidence of significant rashes, suspicious appearing nevi or other concerning lesions.Neurologically, the patient is awake and alert and the patient does not have any focal neurological deficit. Cranial nerves are essentially intact. Assessment and Plan Plan: Assessment Obstructive sleep apnea, moderately severe with an AHI of 27, successfully treated with APAP. Compliance he evaluation was done and the patient is currently asymptomatic Morbid obesity with interval 50 pound weight loss. Current body mass index is down to 40.4 Hypothyroidism Hyperlipidemia Osteoarthritis Plan Continue CPAP therapy for now the same level of pressure noted a marked improvement in the weight and drop and average pressure delivered by the APAP machine I am going to repeat a home sleep study in 2 months time after the patient's weight plateaus and we'll decide if ongoing treatment is needed. the patient has skipped using the CPAP machine for a few days and she hasn't seen a major difference. They may be sign that she may not need ongoing treatment. We'll continue to follow.
== END | disposition home or self-care (01) ==
LOC: SLEEP 14:15
PROVIDERS: ATTEND Internal Medicine Critical Care Medicine
DX: Z53.9 Procedure and treatment not carried out, unspecified reason (principal)

== ENCOUNTER → 2022-04-07 | Outpatient (CLI) | payer MEDICARE ==
[2022-04-07 10:53] LABS: ALT 14 U/L (8-44); AST 17 U/L (13-35); Chol/HDL Ratio 2.42 Ratio; LDL Cholesterol,Calculated 85.5 mg/dL (0.0-131.0); VLDL Calculation 10.68 mg/dL (5.00-40.00)
== END | disposition home or self-care (01) ==
LOC: LABWHC1 07:15
PROVIDERS: ATTEND Internal Medicine Interventional Cardiology
DX: E78.2 Mixed hyperlipidemia (principal)
CPT/HCPCS: 36415; 80061; 84450; 84460

== ENCOUNTER → 2022-10-05 | Outpatient (CLI) | payer MEDICARE ==
[2022-10-05 15:30] LABS: ALT 13 U/L (8-44); AST 14 U/L (13-35); African American GFR (CKD) 87.2 (60.0-200.0); Albumin 4.2 g/dL (3.8-4.9); Albumin/Globulin Ratio 1.83 (1.60-3.17); Alkaline Phosphatase 77 U/L (41-126); BUN/Creat Ratio 20.13 Ratio (12.00-20.00); Blood Urea Nitrogen 16.1 mg/dL (9.0-27.0); Calcium 9.3 mg/dL (8.7-10.3); Carbon Dioxide 28.5 mmol/L (20.0-27.5); Chloride 106 mmol/L (96-109); Chol/HDL Ratio 2.79 Ratio; Globulin 2.3 g/dL (1.6-3.3); Glucose 112 mg/dL (70-110); LDL Cholesterol,Calculated 98.4 mg/dL (0.0-131.0); Non-African American GFR(CKD) 75.2 (60.0-200.0); Potassium 5.1 mmol/L (3.5-5.5); Sodium 144 mmol/L (135-145); Total Protein 6.5 g/dL (6.2-8.2)
== END | disposition home or self-care (01) ==
LOC: LABWHC1 07:44
PROVIDERS: ATTEND Internal Medicine Interventional Cardiology
DX: E78.2 Mixed hyperlipidemia (principal)
CPT/HCPCS: 36415; 80053; 80061

== ENCOUNTER → 2022-11-30 | Outpatient (CLI) | payer MEDICARE ==
--- NOTE | 2022-12-01 09:09 | MM ---
Reason for Exam: Screening (asymptomatic). Last mammogram was performed 1 year(s) and 7 month(s) ago. Patient History: Menarche at age 11. First Full-Term at age 23. Hysterectomy at age 57. Postmenopausal. Estrogen for 2 years, 8 months. Progesterone for 2 years, 8 months. Risk Values: Renay 5 year model risk: 1.9%. NCI Lifetime model risk: 5.9%. Prior Study Comparison: 07/06/2012 Bilateral Diagnostic Mammogram, [facility]. 07/15/2014 Bilateral Screening Mammogram, [facility]. 04/24/2021 Bilateral Screening Mammogram, [facility]. Tissue Density: There are scattered fibroglandular densities. Findings: Analyzed By CAD. There is no suspicious group of microcalcifications within either breast. There is a round circumscribed equal density 4 mm mass within the upper outer right breast at middle to posterior depth. No new suspicious masses within the left breast. Overall Assessment: Incomplete: need additional imaging evaluation, BI-RAD 0 Management: Diagnostic Breast Ultrasound of the right breast. A clinical breast exam by your physician is recommended on an annual basis and results should be correlated with mammographic findings. [facility] will attempt to contact patient to return for supplemental views and ultrasound if indicated. Note on Renay scores and lifetime risk: 1. A Renay score greater than 3% is considered moderate risk. If this is the case, consider specialist referral to assess eligibility for a risk reducing agent. If overall lifetime risk for the development of breast cancer is 20% or higher, the patient may qualify for future screening with alternating mammogram and breast MRI. Electronically signed and approved by: Georges Perry D.O.
== END | disposition home or self-care (01) ==
LOC: RADMAMWWP 07:07
PROVIDERS: ATTEND Family Medicine
DX: Z12.31 Encounter for screening mammogram for malignant neoplasm of breast (principal); Z78.0 Asymptomatic menopausal state
CPT/HCPCS: 77063; 77067

== ENCOUNTER → 2022-12-03 | Outpatient (CLI) | payer MEDICARE ==
--- NOTE | 2022-12-03 14:01 | USB ---
Reason for Exam: Additional evaluation requested from abnormal screening. Patient History: Menarche at age 11. First Full-Term at age 23. Hysterectomy at age 57. Postmenopausal. Estrogen for 2 years, 8 months. Progesterone for 2 years, 8 months. Risk Values: Renay 5 year model risk: 1.9%. NCI Lifetime model risk: 5.9%. Technique: Method: Targeted. Prior Study Comparison: 07/06/2012 Right Diagnostic Ultrasound, [facility]. 07/15/2014 Bilateral Screening Mammogram, [facility]. 04/24/2021 Bilateral Screening Mammogram, [facility]. 11/30/2022 Bilateral MG 3D screening mammo w/cad, [facility]. Findings: The upper outer quadrant of the right breast, the axilla of the right breast and the retroareolar of the right breast were scanned. Targeted ultrasound right breast..Targeted ultrasound right breast. There is a 4 x 2 x 3 mm oval anechoic lesion too small to further characterize but likely reflecting thin-walled cyst corresponding to the mammogram abnormality. Lesion presumed benign. Overall Assessment: Benign, BI-RAD 2 Management: Screening Mammogram of both breasts in 1 year. A clinical breast exam by your physician is recommended on an annual basis and results should be correlated with mammographic findings. This exam should not preclude additional follow-up of suspicious palpable abnormalities. Results were given to the patient verbally at the time of exam. Electronically signed and approved by: Irving Nava M.D.
== END | disposition home or self-care (01) ==
LOC: RADUSWWP 13:07
PROVIDERS: ATTEND Family Medicine
DX: R92.8 Other abnormal and inconclusive findings on diagnostic imaging of breast (principal); Z78.0 Asymptomatic menopausal state

== ENCOUNTER → 2023-04-13 | Outpatient (CLI) | payer MEDICARE ==
[2023-04-13 17:12] LABS: ALT 14 U/L (8-44); AST 10 U/L (13-35); Chol/HDL Ratio 2.89 Ratio; LDL Cholesterol,Calculated 88.3 mg/dL (0.0-131.0); VLDL Calculation 15.08 mg/dL (5.00-40.00)
== END | disposition home or self-care (01) ==
LOC: LABWHC1 07:29
PROVIDERS: ATTEND Nurse Practitioner Adult Health
DX: E78.2 Mixed hyperlipidemia (principal)
CPT/HCPCS: 36415; 80061; 84450; 84460

== ENCOUNTER → 2023-05-20 | Outpatient (CLI) | payer MEDICARE ==
--- NOTE | 2023-05-21 16:31 | MR ---
EXAMINATION TYPE: MR knee RT wo con DATE OF EXAM: 05/20/2023 COMPARISON: None HISTORY: Right knee pain for a few weeks. TECHNIQUE: Multiplanar, multisequence imaging of the right knee is performed without IV contrast. FINDINGS: There is a osteochondral defect in the right femoral condyle and marked surrounding edema within the femoral condyle. There is a horizontal tear of the body and posterior horn of the medial meniscus in the medial meniscus is displaced medially. There is a mild strain of the medial collateral ligament. There is oblique tear of the posterior horn of the lateral meniscus. There is a complete tear of the anterior cruciate ligament. The posterior cruciate ligament is intact . There is a small to moderate joint effusion. There is marked osteoarthritic change of all 3 compartments of the knee where there is marked thinnin g of the cartilages, hypertrophic spurring and joint space narrowing. IMPRESSION: 1. Osteochondral defect and marked bone marrow edema in the medial femoral condyle. 2. Small to moderate joint effusion. 3. Tear of the anterior cruciate ligament. 4. Tear of both the medial and lateral menisci. 5. Strain of the medial collateral ligament and extrusion of the medial meniscus. 5. Marked degenerative arthritis of all 3 compartments of the knee.
== END | disposition home or self-care (01) ==
LOC: RADMRIMAIN 16:10
PROVIDERS: ATTEND Orthopaedic Surgery
DX: M17.11 Unilateral primary osteoarthritis, right knee (principal); M25.461 Effusion, right knee; M23.611 Other spontaneous disruption of anterior cruciate ligament of right knee; M23.200 Derangement of unspecified lateral meniscus due to old tear or injury, right knee; M23.203 Derangement of unspecified medial meniscus due to old tear or injury, right knee; M23.631 Other spontaneous disruption of medial collateral ligament of right knee

== ENCOUNTER → 2023-06-17 | Outpatient (CLI) | payer MEDICARE ==
[2023-06-17 14:37] LABS: Basophils # (A) 0.04 X 10*3/uL (0.00-0.10); Basophils % (A) 0.8 %; Eosinophils # (A) 0.13 X 10*3/uL (0.04-0.35); Eosinophils % (A) 2.5 %; HCT 44.1 % (37.2-46.3); HGB 14.3 g/dL (12.0-15.0); Lymphocytes # (A) 1.66 X 10*3/uL (0.90-5.00); Lymphocytes % (A) 32.4 %; MCH 28.9 pg (27.0-32.0); MCHC 32.4 g/dL (32.0-37.0); MCV 89.3 FL (80.0-97.0); Mean Platelet Volume 10.7 FL (9.5-12.2); Monocytes # (A) 0.32 X 10*3/uL (0.20-1.00); Monocytes % (A) 6.3 %; NRBC Per 100 WBC 0 X 10*3/uL (0.00-0.01); Neutrophils # (A) 2.95 X 10*3/uL (1.80-7.70); Neutrophils % (A) 57.6 %; Platelet Count 195 X 10*3/uL (140-440); RBC 4.94 X 10*6/uL (4.10-5.20); RDW 13.7 % (11.5-14.5); WBC 5.12 X 10*3/uL (4.50-10.00)
[2023-06-17 16:01] LABS: Anion Gap 9.3 mmol/L (4.00-12.00); Carbon Dioxide 26.7 mmol/L (21.6-31.8); Potassium 4.3 mmol/L (3.5-5.5)
== END | disposition home or self-care (01) ==
LOC: LABPAT 10:53
PROVIDERS: ATTEND Orthopaedic Surgery
DX: Z01.818 Encounter for other preprocedural examination (principal); M23.91 Unspecified internal derangement of right knee
CPT/HCPCS: 80051; 85025; 93005

== ENCOUNTER 2023-06-30 09:54 | Day surgery (SDC) | payer MEDICARE ==
[2023-06-23 09:18] VITALS: BMI 52.7
--- NOTE | 2023-06-29 22:00 | HP ---
HISTORY AND PHYSICAL DATE OF SCHEDULED SURGERY: 06/30/2023. HISTORY OF PRESENT ILLNESS: Karen Mason is a 68-year-old patient seen with progressive right knee pain. We discussed options for treatment. She elected to proceed with right knee arthroscopy. Consent was obtained. Medical clearance was provided. PAST MEDICAL HISTORY: Hypothyroidism, hypertension, and hyperlipidemia. PAST SURGICAL HISTORY: Hysterectomy. DAILY MEDICATIONS: 1. Aleve. 2. Levothyroxine. 3. Metoprolol. 4. Simvastatin. ALLERGIES: Penicillin. SOCIAL HISTORY: She denies tobacco use. PHYSICAL EVALUATION OF RIGHT KNEE: Range of motion is -1/2 to 90 degrees. Mild effusion. Tenderness along the medial and lateral joint lines. Positive medial Geovany's. Positive lateral Geovany's. Ligaments are stable. Hip rotation is without pain. Distal neurovascular exam is intact. RADIOGRAPHS: Right knee radiographs reveal moderate osteoarthritis. Right knee MRI revealed medial lateral meniscal tears, ACL tear, and osteoarthritis. IMPRESSION: 1. Internal derangement of right knee with medial lateral meniscal tears. 2. Right knee ACL tear, anterior cruciate ligament tear. 3. Hypertension. 4. Hyperlipidemia. 5. Hypothyroidism. PLAN: Arthroscopy right knee with partial medial/lateral meniscectomy and debridement. MMODL / IJN: [id number] /
[~2023-06-30 09:54] MED LIST: DEXAMETHASONE SOD PHOSPHATE 4 MG/ML 1 ML VIAL IV ONE; HYDROmorphone 0.5 MG/0.5 ML SYRINGE IVP PRN; LACTATED RINGERS 1,000 ML IV SCH; MIDAZOLAM 2 MG/2 ML VIAL IV PRN; ONDANSETRON 4 MG/2 ML VIAL IVP ONE; ceFAZolin 3 GM in SODIUM CHLORIDE 0.9% 100 ML IVPB PRN
[2023-06-30] MEDS ORDERED: PHENYLEPHRINE 10 MG/ML VIAL ONE (11:52)
[2023-06-30] MEDS ORDERED: LIDOCAINE 4% LTA KIT (4 ML) TOPICAL ONE (11:52)
[2023-06-30] MEDS ORDERED: HYDROmorphone (PF) 1 MG/ML ONE (11:52)
[2023-06-30] MEDS ORDERED: fentaNYL (PF) 50 MCG/ML 2 ML AMP ONE (11:52)
[2023-06-30] MEDS ORDERED: MIDAZOLAM 2 MG/2 ML VIAL ONE (11:52)
[2023-06-30] MEDS ORDERED: PROPOFOL 10 MG/ML 20 ML VIAL IV ONE (11:52)
[2023-06-30] MEDS ORDERED: KETOROLAC 15 MG/ML 1 ML VIAL ONE (11:52)
[2023-06-30] MEDS ORDERED: SUCCINYLCHOLINE CHLORIDE 200 MG/10 ML VIAL IV ONE (11:52)
[2023-06-30] MEDS ORDERED: LIDOCAINE 1% INJ 10MG/ML (20 ML MDV) ONE (11:52)
[2023-06-30] MEDS ORDERED: BUPIVACAINE (PF) 0.25% 30 ML VIAL INTRAARTIC ONE (12:33)
[2023-06-30 13:01] VITALS: RESP 16; TEMP 97.3
--- NOTE | 2023-06-30 13:09 | P.OP ---
Date of Procedure: 06/30/23 Preoperative Diagnosis: Internal derangement right knee Postoperative Diagnosis: 1. Tear medial and lateral meniscus right knee 2. 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 Reactive synovitis medial, lateral and suprapatellar compartments right knee 4. ACL tear right knee Procedure(s) Performed: 1. Arthroscopic partial medial and lateral meniscectomy right knee 2. Arthroscopic microfracture lateral femoral sulcus right knee 3. Arthroscopic partial synovectomy medial, lateral and suprapatellar compartments right knee 4. Arthroscopic debridement ACL tear right knee Anesthesia: AGUILAA, local Surgeon: Josr Reyes Estimated Blood Loss (ml): 6 Pathology: none sent Condition: stable Disposition: PACU Indications for Procedure: 68-year-old patient seen with progressive right knee pain. After having treatment options discussed, she elected to proceed with arthroscopy. Operative Findings: See description of procedure Description of Procedure: Patient was taken to the operative suite. Patient underwent a general anesthetic by the department of anesthesia. Patient was given preoperative antibiotics. The right lower extremity was placed in a well-padded arthroscopic leg serrano. The right leg was prepped and draped in the normal sterile orthopedic fashion. A lateral parapatellar and suprapatellar incision was made. Trochars were inserted. Arthroscopy was initiated. Suprapatellar pouch revealed diffuse thick reactive synovitis. The patellofemoral joint appeared to articular congruently. There was grade II/III chondromalacia of the patella and grade IV chondromalacia of the lateral femoral sulcus with a 2 x 3 cm area of exposed bone. The scope was guided into the medial gutter. No loose bodies or plica were identified. The scope was then guided into the medial compartment. A medial parapatellar incision was made. Trocar inserted followed by probe. There was a complex tear posterior horn medial meniscus. There were grade II chondromalacia changes of the medial femoral condyle. There was thick reactive synovitis anteriorly. I performed a partial medial meniscectomy getting down to stable meniscal tissue. I performed a partial synovectomy decompressing the reactive synovitis. The residual meniscus was probed and was found to be stable. There was good decompression of the synovitis. The scope and probe were then guided into the intercondylar notch. The ACL was torn and stretched out. I used a motorized shaver and debrided that ACL tear. The PCL was stable.. The scope and probe were then guided into lateral compartment. There was a significant tear along the anterior mid body areas of the lateral meniscus. There were grade II chondromalacia changes lateral compartment. There was thick reactive synovitis anteriorly. I performed a partial lateral meniscectomy getting down to stable meniscal tissue. I performed a partial synovectomy decompressing the reactive synovitis. The residual meniscus was stable. There was good decompression of the synovitis. The scope was in guided back into the suprapatellar compartment. I introduced a motorized shaver into the suprapatellar compartment. I debrided some piecemeal fragments of meniscus I encounter. I performed a partial synovectomy. I now introduced a microfracture awl and I performed a microfracture to 3 separate areas of the lateral femoral sulcus penetrating the bone with resultant bleeding at all 3 microfracture sites. I now took 1 more look around the entire knee, no residual debris. Instruments were now removed from the joint. The joint was infiltrated with .25% Marcaine. Steri-Strips were applied to the portal sites. Sterile dressings were applied. The patient was placed into a JENNIFER hose. No tourniquet was utilized. The patient was awakened, transferred to a bed and taken to recovery stable satisfactory condition.
[2023-06-30 14:18] VITALS: BP 124/83; PULSE 79
== END 2023-06-30 14:40 | disposition home or self-care (01) ==
LOC: OR 09:54
PROVIDERS: ATTEND Orthopaedic Surgery
DX: S83.281A Other tear of lateral meniscus, current injury, right knee, initial encounter (principal); S83.241A Other tear of medial meniscus, current injury, right knee, initial encounter; S83.511A Sprain of anterior cruciate ligament of right knee, initial encounter; M22.41 Chondromalacia patellae, right knee; M65.161 Other infective (teno)synovitis, right knee; E03.9 Hypothyroidism, unspecified; I10 Essential (primary) hypertension; E78.5 Hyperlipidemia, unspecified; G47.33 Obstructive sleep apnea (adult) (pediatric); K21.9 Gastro-esophageal reflux disease without esophagitis; I25.10 Atherosclerotic heart disease of native coronary artery without angina pectoris; E66.01 Morbid (severe) obesity due to excess calories; Z68.43 Body mass index [BMI] 50.0-59.9, adult; Z79.890 Hormone replacement therapy; Z79.899 Other long term (current) drug therapy; Z87.891 Personal history of nicotine dependence; Z88.0 Allergy status to penicillin; X58.XXXA Exposure to other specified factors, initial encounter
CPT/HCPCS: 29880; 29879; 29888; J2250; J0330; J1100; J0690; J2405; J2001; J3010; J1170; J1885; J2704; J2371; J0665

== ENCOUNTER → 2023-10-13 | Outpatient (CLI) | payer MEDICARE ==
[2023-10-13 15:24] LABS: ALT 10 U/L (8-44); AST 15 U/L (13-35); Albumin/Globulin Ratio 1.82 Ratio (1.60-3.17); Alkaline Phosphatase 79 U/L (41-126); BUN/Creat Ratio 17.67 Ratio (12.00-20.00); Blood Urea Nitrogen 15.9 mg/dL (9.0-27.0); Calcium 9.1 mg/dL (8.7-10.3); Chloride 108 mmol/L (96-109); Chol/HDL Ratio 3.06 Ratio; Globulin 2.2 g/dL (1.6-3.3); Glucose 118 mg/dL (70-110); LDL Cholesterol,Calculated 92.9 mg/dL (0.0-131.0); Sodium 145 mmol/L (135-145); Total Bilirubin 0.4 mg/dL (0.3-1.2); Total Protein 6.2 g/dL (6.2-8.2)
== END | disposition home or self-care (01) ==
LOC: LABWHC1 07:13
PROVIDERS: ATTEND Internal Medicine Interventional Cardiology
DX: I10 Essential (primary) hypertension (principal); E78.2 Mixed hyperlipidemia
CPT/HCPCS: 36415; 80053; 80061

== ENCOUNTER → 2024-04-19 | Outpatient (CLI) | payer MEDICARE ==
[2024-04-19 16:15] LABS: Blood Urea Nitrogen 20.8 mg/dL (9.0-27.0); Chloride 104 mmol/L (96-109); Glucose 105 mg/dL (70-110); LDL Cholesterol,Calculated 96.5 mg/dL (0.0-131.0); Potassium 4.7 mmol/L (3.5-5.5); Sodium 143 mmol/L (135-145)
[2024-04-19 16:16] LABS: ALT 8 U/L (8-44); AST 13 U/L (13-35); Albumin 4.2 g/dL (3.8-4.9); Albumin/Globulin Ratio 1.56 Ratio (1.60-3.17); Alkaline Phosphatase 72 U/L (41-126); Calcium 9.5 mg/dL (8.7-10.3); Carbon Dioxide 26.3 mmol/L (21.6-31.8); Globulin 2.7 g/dL (1.6-3.3); Total Bilirubin 0.5 mg/dL (0.3-1.2); Total Protein 6.9 g/dL (6.2-8.2)
== END | disposition home or self-care (01) ==
LOC: LABWHC1 08:14
PROVIDERS: ATTEND Internal Medicine Interventional Cardiology
DX: E78.2 Mixed hyperlipidemia (principal)
CPT/HCPCS: 36415; 80053; 80061

== ENCOUNTER → 2024-05-02 | Outpatient (CLI) | payer MEDICARE ==
--- NOTE | 2024-05-02 12:06 | BD ---
EXAMINATION TYPE: Axial Bone Density DATE OF EXAM: 05/02/2024 CLINICAL HISTORY: 69 years old Female. ICD-10 CODE: Z78.0 ASYMP JUNIOR STATE , Additional History: Height: 60 Weight: 252.3 FRAX RISK QUESTIONS: Alcohol (3 or more units per day): no Family History (Parent hip fracture): no Glucocorticoids (More than 3mos): no (Ex: prednisone, prednisolone, methylprednisolone, dexamethasone, and hydrocortisone). History of Fracture in Adulthood: no Secondary Osteoporosis: 1. Type 1 Diabetes: no 2. Hyperthyroidism: no 3. Menopause before 45: yes 4. Malnutrition: no 5. Chronic liver disease: no Rheumatoid Arthritis: no Current Tobacco Use: no RISK FACTORS HISTORY OF: Hip Fracture (Right/Left): no Spine Fracture: no History of Wrist Fracture: no Surgery to Spine/Hip(right/left)/Wrist (right/left): no MEDICATIONS: Thyroid Medications: Levothyroxine How Long: about 20 years Osteoporosis Medications: no EXAM MEASUREMENTS: Bone mineral densitometry was performed using the [employer] System. Bone mineral density as measured about the Lumbar spine is: ----- L1-L4(G/cm2): 1.320 T Score Values are as follows: ----- L1: -0.2 ----- L2: 1.4 ----- L3: 1.6 ----- L4: 1.6 ----- L1-L4: 1.2 Z Score Values are as follows: ----- L1: 0.3 ----- L2: 1.9 ----- L3: 2.1 ----- L4: 2.1 ----- L1-L4: 1.7 Baseline Study Bone mineral density about the R hip (g/cm2): 0.991 Bone mineral density about the L hip (g/cm2): 0.983 T Score values are as follows: -----R Neck: -0.9 -----L Neck: -0.5 -----R Total: -0.1 -----L Total: -0.2 Z Score values are as follows: -----R Neck: 0.1 -----L Neck: 0.5 -----R Total: 0.6 -----L Total: 0.5 Baseline Study FRAX%s: The graph provided illustrates a 7.1% chance for a major osteoporotic fx and a 0.6% chance fo r the hips probability for fx in 10 years time. IMPRESSION: Normal (Values between +1 and -1 indicate normal bone mass). Consider repeating this study in 5 year s or sooner if there is some new clinical indication. NOTE: T-SCORE=SD OF THE YOUNG ADULT MEAN. [facility], , 05/02/2024 12:04 PM
--- NOTE | 2024-05-04 15:22 | MM ---
Reason for Exam: Screening (asymptomatic). Last mammogram was performed 1 year(s) and 5 month(s) ago. Patient History: Menarche at age 11. First Full-Term at age 23. Hysterectomy at age 57. Postmenopausal. Estrogen for 2 years, 8 months. Progesterone for 2 years, 8 months. Risk Values: Renay 5 year model risk: 1.9%. NCI Lifetime model risk: 5.4%. Prior Study Comparison: 07/15/2014 Bilateral Screening Mammogram, [facility]. 04/24/2021 Bilateral Screening Mammogram, [facility]. 11/30/2022 Bilateral MG 3D screening mammo w/cad, [facility]. Tissue Density: There are scattered areas of fibroglandular density. Findings: Analyzed By CAD. There is no suspicious group of microcalcifications or new suspicious mass in either breast. Overall Assessment: Negative, BI-RAD 1 Management: Screening Mammogram of both breasts in 1 year. Patient should continue monthly self-breast exams. A clinical breast exam by your physician is recommended on an annual basis. This exam should not preclude additional follow-up of suspicious palpable abnormalities. Note on Renay scores and lifetime risk: 1. A Renay score greater than 3% is considered moderate risk. If this is the case, consider specialist referral to assess eligibility for a risk reducing agent. 2. If overall lifetime risk for the development of breast cancer is 20% or higher, the patient may qualify for future screening with alternating mammogram and breast MRI. [facility], , 05/04/2024 3:19 PM. Electronically signed and approved by: Ricci Hawkins M.D. Radiologist
== END | disposition home or self-care (01) ==
LOC: RADMAMWWP 11:04
PROVIDERS: ATTEND Family Medicine
DX: Z12.31 Encounter for screening mammogram for malignant neoplasm of breast (principal); Z78.0 Asymptomatic menopausal state; R92.323 Mammographic fibroglandular density, bilateral breasts
CPT/HCPCS: 77063; 77067; 77080